=== PATIENT | male | born 1950 | race Two or more races ===

== ENCOUNTER 2016-12-30 18:33 | Emergency (ER) | payer MEDICARE, BC ==
[2016-12-30] MEDS ORDERED: 0.9 % SODIUM CHLORIDE 1,000 ML BAG IV ONE (19:00)
--- NOTE | 2016-12-30 19:01 | Emergency Department Record ---
History of Present Illness - General Chief Complaint: Abdominal Pain Stated Complaint: ABD PAIN Time Seen by Provider: 12/30/16 18:59 Source: Patient, Family Mode of Arrival: Ambulatory Limitations: No limitations - History of Present Illness Initial Comments: 66 yo male presents with abdominal pain. The patient states he has not had a bowel movement in four days. No fever or vomiting. The patient reports he had a cath with ablation on at [facility]. This procedure went well. He converted to NSR. 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 No fever or chills. No diarrhea. He has had a small section of colon removed in 2003 for colon cancer and had his gall bladder removed. MD Complaint: Abdominal pain -: Days(s) (4) Location: Epigastric Radiation: Epigastric Migration to: Epigastric Severity: Moderate Quality: Aching Consistency: Constant Improves With: Nothing Worsens With: Eating Context: Recent surgery/procedure (Heart cath) Treatments Prior to Arrival: Antacids - Related Data Home Medications Medication Instructions Recorded Confirmed Last Taken Apixaban [Eliquis] 5 mg PO BID 12/30/16 12/30/16 12/30/16 Azithromycin [Zithromax Tri-Samuel] 500 mg PO DAILY 12/30/16 12/30/16 12/30/16 Bisacodyl [Laxative] 5 mg PO DAILY 12/30/16 12/30/16 12/30/16 Metoprolol Tartrate [Lopressor] 25 mg PO Q12H 12/30/16 12/30/16 12/30/16 Omeprazole Magnesium [Prilosec Otc] 20 mg PO DAILY 12/30/16 12/30/16 12/30/16 Previous Rx's Medication Instructions Recorded Metronidazole [Flagyl] 500 mg PO BID #14 tablet 12/30/16 Allergies Allergy/AdvReac Type Severity Reaction Status Date / Time NO KNOWN DRUG ALLERGY Allergy Uncoded 11/21/13 10:09 Review of Systems Constitutional: Reports: Fever (subjective). Denies: Chills, Malaise, Weakness Eyes: Denies: Eye discharge, Eye pain ENT: Reports: Epistaxis. Denies: Congestion, Throat pain Respiratory: Reports: Cough (some green sputum). Denies: Dyspnea, Hemoptysis, Wheezes Cardiovascular: Denies: Chest pain, Dyspnea on exertion, Edema, Palpitations, Syncope Endocrine: Denies: Fatigue, Polydipsia, Polyuria Gastrointestinal: Reports: Abdominal pain, Constipation, Nausea, Other ( occasional pink mucous in stool). Denies: Diarrhea, Hematemesis, Hematochezia, Melena, Vomiting Genitourinary: Denies: Dysuria, Frequency, Hematuria Musculoskeletal: Denies: Arthralgia, Back pain, Myalgia, Neck pain Skin: Denies: Bruising, Change in color, Rash Neurological: Denies: Confusion, Headache Psychiatric: Denies: Anxiety Hematological/Lymphatic: Denies: Blood Clots, Easy bleeding, Easy bruising, Swollen glands Physical Exam - General General Appearance: Alert, Oriented x3, Cooperative, No acute distress Limitations: No limitations - Head Head exam: Normal inspection - Eye Eye exam: Normal appearance, PERRL. negative: Conjunctival injection, Periorbital swelling - ENT ENT exam: Normal exam, Mucous membranes moist, Normal external ear exam, Normal orophraynx, TM's normal bilaterally Ear exam: Normal external inspection. negative: External canal tenderness Nasal Exam: Normal inspection. negative: Discharge, Sinus tenderness Mouth exam: Normal external inspection, Tongue normal - Neck Neck exam: Normal inspection, Full ROM. negative: Tenderness - Respiratory Respiratory exam: Normal lung sounds bilaterally. negative: Accessory muscle use, Prolonged expiratory, Respiratory distress - Cardiovascular Cardiovascular Exam: Regular rate, Normal rhythm, Normal heart sounds - GI/Abdominal GI/Abdominal exam: Soft, Diminished bowel sounds. negative: Distended, Guarding , Hernia, Hyperactive bowel sounds, Pulsatile mass, Rebound, Rigid, Tenderness - Rectal Rectal exam: Deferred - exam: Deferred - Extremities Extremities exam: Normal inspection, Full ROM, Normal capillary refill. negative: Pedal edema, Tenderness - Back Back exam: Reports: Normal inspection, Full ROM. Denies: Muscle spasm, Rash noted, Tenderness - Neurological Neurological exam: Alert, Normal gait, Oriented X3 - Psychiatric Psychiatric exam: Normal affect, Normal mood. negative: Agitated, Anxious - Skin Skin exam: Dry, Intact, Normal color, Warm Course - Reevaluation(s) Reevaluation #1: The CBC was reviewed. No acute changes The CMP was reviewed. glucose 134, and ALT 74 The Lipase was normal 12/30/16 19:52 Reevaluation #2: The patient voided about 300ml with no residual retention on bladder scan. He had a feeling like he was not emptying his bladder. Reevaluation #3: The CT scan was reviewed. There is a very small area of haziness distal to the anastamosis in the upper rectum that could be inflammatory but neoplasm is not ruled out. Follow up endoscopy recommended. The results were given to the patient. He has been referred to GI as he will need a lower scope. We discussed adding Flagyl given his recent fever. He is to call his PCP tomorrow for very close follow up. We discussed reasons to return or seek immediate medical attention. 12/30/16 22:36 Medical Decision Making - Lab Data Result diagrams: 12/30/16 19:10 12/30/16 19:10 Disposition Disposition: Discharge Clinical Impression: Colitis Constipation Qualifiers: Constipation type: unspecified constipation type Qualified Code(s): K59.00 - Constipation, unspecified Disposition: Home, Self-Care Condition: (1) Good Instructions: Constipation (ED), Colitis (ED) Additional Instructions: Call your doctor and the GI clinic tomorrow for close follow up Return or seek medical care if you have pain, fever, vomiting or concerns You will need GI follow up and likely a scope to further evaluate your CT scan findings Prescriptions: Metronidazole [Flagyl] 500 mg PO BID #14 tablet Referrals: JEAN CLAUDE MARTINEZ [MEDICAL DOCTOR] - [facility] [Provider Group] Forms: Patient Portal Access Time of Disposition: 22:40
[2016-12-30 19:19] LABS: BASO % 0.2 % (0-6); EOS % 1.3 % (0-6); GRAN % 76.3 % (47-80); HEMATOCRIT 46.6 % (42.0-52.0); HEMOGLOBIN 15.7 gm/dl (14.0-18.0); LYMPH % 15.1 % (16-45); MEAN CELL VOLUME 89.6 fl (81-97); MEAN CORPUSCULAR HEMOGLOBIN 30.2 pg (27-33); MEAN CORPUSCULAR HGB CONC 33.7 g/dl (32-36); MEAN PLATELET VOLUME 9.4 fl (7.4-10.4); MONO % 7.1 % (0-9); PLATELET COUNT 223 K/uL (130-400); RED CELL DISTRIBUTION WIDTH 12.7 % (11.5-14.5)
[2016-12-30 19:31] LABS: ALBUMIN 4.4 gm/dL (3.5-5.0); ALKALINE PHOSPHATASE 75 U/L (38-126); ALT/SGPT 76 U/L (21-72); ANION GAP 10.9 (7-16); AST/SGOT 37 U/L (17-59); BILIRUBIN,TOTAL 0.63 mg/dL (0.2-1.3); BLOOD UREA NITROGEN 16 mg/dL (9-20); CARBON DIOXIDE 25.1 mmol/L (22-30); EST GLOMERULAR FILTRATION RATE > 60 ml/min; GLUCOSE,RANDOM 134 mg/dL (70-110); LIPASE 82 U/L (23-300); TOTAL PROTEIN 7.7 gm/dL (6.3-8.2)
[2016-12-30 20:00] LABS: URINE APPEARANCE CLEAR; URINE BILIRUBIN NEGATIVE (NEGATIVE); URINE BLOOD NEGATIVE (NEGATIVE); URINE COLOR YELLOW; URINE GLUCOSE (UA) NEGATIVE (NEGATIVE); URINE KETONE NEGATIVE (NEGATIVE); URINE LEUKOCYTE ESTERASE NEGATIVE (NEGATIVE); URINE NITRITE NEGATIVE (NEGATIVE); URINE PROTEIN NEGATIVE (NEGATIVE); URINE UROBILINOGEN 0.2 E.U./dL (0.20 - 1.00)
[2016-12-30] MEDS ORDERED: ONDANSETRON HCL IV 4 MG/2 ML VIAL IVP ONE (20:05)
[2016-12-30] MEDS ORDERED: ACETAMINOPHEN 500 MG TABLET PO ONE (22:18)
[2016-12-30] MEDS ORDERED: METRONIDAZOLE 250 MG TABLET PO ONE (22:35)
--- NOTE | 2017-01-01 13:42 | CT SCAN REPORT ---
EXAM: CT OF THE ABDOMEN AND PELVIS WITH CONTRAST HISTORY: ABDOMINAL PAIN IN THE ABDOMEN, DECREASED BOWEL MOVEMENTS. HAD COLON CANCER IN 2004. CHOLECYSTECTOMY. PARTIAL COLON RESECTION. TECHNIQUE: Axial CT scan of the abdomen and pelvis was obtained following both oral and IV contrast administration, utilizing a dose of 100 ml of Omnipaque 300 as the IV contrast. Comparison: None. FINDINGS: The gallbladder is not identified consistent with the surgical history. No definite hepatic, splenic, adrenal, pancreatic, or left renal mass evident. There is probably a tiny cyst in the lower pole of the right kidney. This is too small to accurately characterize on the CT. Mild ectasia of the infrarenal abdominal aorta measuring up to about 2.3 cm in size just before the bifurcation. Prostate calcification with some enlargement of the prostate measuring about 5.1 cm in transverse x 3.6 cm in AP diameter. Correlation with physical exam and serum PSA suggested. Postop changes in the region of the lower sigmoid colon. Slightly thick walled appearance of the rectum is nonspecific. Follow-up sigmoidoscopy would probably be useful. There is some hazy density in the perirectal adipose tissue particularly just distal to the level of the low sigmoid anastomosis. This could be just postoperative scarring, but some inflammatory change in this region in particular would be difficult to exclude. The appendix is visualized and appears negative. Mild dependent atelectasis in both lung bases posteriorly. No free intraperitoneal air or free intraperitoneal fluid evident. There is a small midline anterior abdominal wall hernia superior to the level of the umbilicus. This small hernia measures approximately 3.8 cm in diameter and contains adipose tissue, but no bowel. Facet joint arthropathy in the lower lumbar spine. IMPRESSION: 1. POSTOP CHOLECYSTECTOMY. 2. POSTOP PARTIAL SIGMOID RESECTION WITH A LOW SIGMOID ANASTOMOSIS. THICKENING OF THE BOWEL DISTAL TO THE ANASTOMOSIS WITH SOME HAZY DENSITY IN THE ADJACENT PERIRECTAL ADIPOSE TISSUE. THIS MAY REPRESENT SOME INFLAMMATORY CHANGE ALTHOUGH RECURRENT NEOPLASM WOULD BE DIFFICULT TO EXCLUDE. FOLLOW-UP SIGMOIDOSCOPY IS SUGGESTED. 3. SMALL MIDLINE ANTERIOR ABDOMINAL WALL HERNIA SUPERIOR TO THE LEVEL OF THE UMBILICUS. THIS CONTAINS ADIPOSE TISSUE, BUT NO BOWEL. 4. MILD ECTASIA OF THE INFRARENAL ABDOMINAL AORTA WITH A MAXIMUM DIAMETER OF ONLY ABOUT 2.3 CM. 5. SOME ENLARGEMENT OF THE PROSTATE CONTAINING SOME CALCIFICATION. JOB NUMBER: [id number] MTDD
== END 2016-12-30 23:11 | disposition home or self-care (01) ==
LOC: ER 18:33
DX: R10.9 Unspecified abdominal pain (principal); K59.00 Constipation, unspecified; R50.9 Fever, unspecified; Z85.038 Personal history of other malignant neoplasm of large intestine; I48.0 Paroxysmal atrial fibrillation
CPT/HCPCS: 51798; 74177; 80048; 80076; 81003; 83690; 85025; 93005; 96374; 99284; J2405; J7030